=== PATIENT | male | born 1960 | race Caucasian/White ===

== ENCOUNTER 2016-11-18 05:31 | Day surgery (SDC) | payer MEDICAID ==
[~2016-11-18] VITALS: Ht 170.2 cm; Wt 84.5 kg
[2016-11-18] MEDS ORDERED: SODIUM CHLORIDE 0.9% 1,000 ML IV ONE ×2 (06:00→06:12)
[2016-11-18] MEDS ORDERED: MONT10TA21 PO (06:20)
[2016-11-18] MEDS ORDERED: LISI-662 PO (06:20)
[2016-11-18] MEDS ORDERED: LEVO500 PO (06:20)
[2016-11-18] MEDS ORDERED: NAPR-58 PO (06:20)
[2016-11-18] MEDS ORDERED: ASPI-1093 PO (06:20)
[2016-11-18] MEDS ORDERED: INSU10VI3 SQ (06:20)
[2016-11-18] MEDS ORDERED: INSU100V12 SQ (06:20)
[2016-11-18 06:52] LABS: GLUCOSE,POINT OF CARE 175 MG/DL (70-110)
[2016-11-18] MEDS ORDERED: MethylPREDNISolone SOD SUCC 125 MG/2 ML VIAL IVP ONE (08:30)
[2016-11-18] MEDS ORDERED: BENZOCAINE 20% 50 MCG/SPRAY 57 GM TP ONE (17:25)
[2016-11-18] MEDS ORDERED: LIDOCAINE HCL 4% 50 ML SOLUTION TP ONE (17:25)
[2016-11-18] MEDS ORDERED: LIDOCAINE HCL 2% 30 ML JELLY TP ONE (17:25)
[2016-11-18] MEDS ORDERED: OXYGEN THERAPY IH SCH (20:00)
== END 2016-11-18 09:50 | disposition home or self-care (01) ==
LOC: SURGERY 05:31
PROVIDERS: ATTEND Internal Medicine Critical Care Medicine
DX: J38.4 Edema of larynx (principal); B37.0 Candidal stomatitis
CPT/HCPCS: 31623; 31624; 71010; 82962; 87015 ×2; 87070; 87101; 87147; 87205; 87220; J7030; 88108; 88312